=== PATIENT | male | born 1975 | race Two or more races ===

== ENCOUNTER 2025-03-04 12:53 | Inpatient (IN) | payer OTHER ==
[2025-03-04 13:15] VITALS: TEMP 97.6; BMI 36.5
[2025-03-04] MEDS ORDERED: NICOTINE POLACRILEX 2 MG LOZENGE BC PRN (13:30)
[2025-03-04] MEDS ORDERED: BENZONATATE 200 MG CAPSULE PO PRN (13:30)
[2025-03-04] MEDS ORDERED: hydrOXYzine PAMOATE 25 MG CAPSULE (FP) PO PRN (13:30)
[2025-03-04] MEDS ORDERED: MAGNESIUM HYDROX 2400MG/30ML ORAL SUSPENSION 30 ML CUP PO PRN (13:30)
[2025-03-04] MEDS ORDERED: POLYETHYLENE GLYCOL (HEALTHYLAX) 3350 17 GM PACKET PO PRN (13:30)
[2025-03-04] MEDS ORDERED: NALOXONE (NARCAN) HCL 4 MG/0.1 ML SPRAY NS PRN (13:30)
[2025-03-04] MEDS ORDERED: METHOCARBAMOL 500 MG TABLET PO PRN (13:30)
[2025-03-04] MEDS ORDERED: guaiFENesin 600 MG TABLET.ER (FP) PO PRN (13:30)
[2025-03-04] MEDS ORDERED: BISMUTH SUBSALICYLATE 524 MG/30 ML PO PRN (13:30)
[2025-03-04] MEDS ORDERED: LOPERAMIDE HCL 2 MG CAPSULE PO PRN (13:30)
[2025-03-04] MEDS ORDERED: IBUPROFEN 400 MG TABLET (FP) PO PRN (13:30)
[2025-03-04] MEDS ORDERED: MAG HYDROX/AL HYDROX/SIMETH 30 ML UNIT-DOSE CUP PO PRN (13:30)
[2025-03-04] MEDS ORDERED: ACETAMINOPHEN 325 MG TABLET (FP) PO PRN (13:30)
[2025-03-04] MEDS ORDERED: IBUPROFEN 600 MG TABLET (FP) PO PRN (13:30)
[2025-03-04] MEDS ORDERED: ONDANSETRON *ODT* 4 MG TABLET SL PRN (13:30)
[2025-03-04] MEDS ORDERED: NICOTINE POLACRILEX 2 MG GUM BUC PRN (13:30)
[2025-03-04] MEDS ORDERED: BENZOCAINE/MENTHOL (CHLORASEPTIC ) LOZENGE MM PRN (13:30)
[2025-03-04] MEDS ORDERED: DICYCLOMINE HCL 10 MG CAPSULE PO PRN (13:30)
[2025-03-04] MEDS ORDERED: chlordiazePOXIDE HCL 25 MG CAPSULE PO PRN (13:32)
[2025-03-04] MEDS: chlordiazePOXIDE HCL 25 MG CAPSULE PO ONE (15:12)
[2025-03-04] MEDS: METOPROLOL TARTRATE 25 MG TABLET (FP) PO ONE (15:12)
[2025-03-04 15:15] VITALS: BP 147/78; PULSE 105; RESP 17
[2025-03-04] MEDS ORDERED: chlordiazePOXIDE HCL 25 MG CAPSULE PO SCH (17:00)
[2025-03-04] MEDS ORDERED: THIAMINE 100 MG TABLET PO SCH (22:00)
[2025-03-04] MEDS ORDERED: MELATONIN 5 MG TABLETS PO SCH (22:00)
[2025-03-05] MEDS ORDERED: PRENATAL VITAMINS W/ FOLIC ACID TABLET (FP) PO SCH (10:00)
[2025-03-06] MEDS ORDERED: chlordiazePOXIDE HCL 25 MG CAPSULE PO SCH (05:00)
[2025-03-07] MEDS ORDERED: chlordiazePOXIDE HCL 10 MG CAPSULE PO PRN
[2025-03-07] MEDS ORDERED: chlordiazePOXIDE HCL 10 MG CAPSULE PO SCH (05:00)
[2025-03-08] MEDS ORDERED: chlordiazePOXIDE HCL 10 MG CAPSULE PO SCH (05:00)
[2025-03-09] MEDS ORDERED: chlordiazePOXIDE HCL 10 MG CAPSULE PO ONE (05:00)
== END 2025-03-04 15:35 | disposition left against medical advice (07) | DRG 770 ==
LOC: YASAS 12:53 → Y6N 14:40
PROVIDERS: ADMIT Allergy & Immunology; ATTEND Allergy & Immunology
PROC: HZ2ZZZZ Detoxification Services for Substance Abuse Treatment (ICD-10-PCS; principal; 2025-03-04)
DX: F10.230 Alcohol dependence with withdrawal, uncomplicated (principal); F10.220 Alcohol dependence with intoxication, uncomplicated; F17.210 Nicotine dependence, cigarettes, uncomplicated; I10 Essential (primary) hypertension
CPT/HCPCS: 80305; 80307; 93005; 93010